=== PATIENT | female | born 1950 | race Caucasian/White ===

== ENCOUNTER 2025-07-02 12:27 | Outpatient (CLI) | payer MEDICARE, BC | END 2025-07-02 12:28 | disposition home or self-care (01) | LOC: CSHMAMMO 12:27 | PROVIDERS: ATTEND Nurse Practitioner Family | DX: Z12.31 Encounter for screening mammogram for malignant neoplasm of breast (principal); Z85.820 Personal history of malignant melanoma of skin | CPT/HCPCS: 77063; 77067 ==